=== PATIENT | male | born 1975 | race Caucasian/White ===

== ENCOUNTER 2019-08-21 12:28 | Emergency (ER) | payer BC ==
[~2019-08-21] VITALS: Ht 177.8 cm; Wt 80.3 kg
[~2019-08-21 12:28] MED LIST: AMBIEN CR12.5 MG PO; AMLODIPINE BESY10 MG PO; AMLODIPINE-BEN1 EAC3 PO; BENTYL10 MG PO; HYDROCHLOROTHIA25 MG PO; SUBOXONE 2 MG-1 EACH PO; TIZANIDINE
--- OUTSIDE RECORDS SUMMARY | 2019-08-21 12:32 | XMS REPORT ---
Author Author [facility] Address Unknown Phone Unavailable Care Team Providers Care Loss Prevention Consultant Name Role Phone BONNY BYRNE Unavailable Unavailable JAMIE BYRNE Unavailable Unavailable Problems This patient has no known problems. Allergies, Adverse Reactions, Alerts This patient has no known allergies or adverse reactions. Medications This patient has no known medications. Results Test Description Test Time Test Comments Text Results Atomic Results Result Comments MRI SACRUM WO [place] [address] Patient Name: FRANC DE LA CRUZ MR #: [id number] : 1975 Age/Sex: 42/M Req #: [id number] [facility] Physician: BONNY BYRNE MD Ordered by: JAMIE BYRNE MD Report #: [id number] Location: [facility] Room/Bed: [place] [address] Procedure: [id number] MRI/MRI SACRUM WO Exam Date: Exam Time: REPORT STATUS: Signed History: Severe low back pain and left lower extremity pain for 3 days. Comparison studies:MRI lumbar spine done earlier the same day. Technique: Coronal T1, PD, sagittal T2, axial T1 and PD without intravenous contrast. Findings: Sacrum: Nonspecific heterogeneous bone marrow signal. Schmorl's node along the superior endplate of S1. No acute fracture, mass or infectious process. Soft tissues: No abnormality Findings in the visualized lower lumbar spine is better detailed in dedicated MRI of the lumbar spine done the same day. IMPRESSION: No acute abnormality Signed by: Dr. Meghan Dee M.D. on 09/19/2017 2:27 AM Dictated By: MEGHAN DEE MD 6 Transcribed By: RAFA on 09/19/17226 COPY TO: JAMIE BYRNE MD MRI SPINE LUMBAR WO [place] [address] Patient Name: FRNAC DE LA CRUZ MR #: [id number] : 1975 Age/Sex: 42/M Req #: [id number] Adm Physician: BONNY BYRNE MD Ordered by: JAMIE BYRNE MD Report #: [id number] Location: [facility] Room/Bed: [place] [address] Procedure: [id number] MRI/MRI SPINE LUMBAR WO Exam Date: Exam Time: REPORT STATUS: Signed History: Severe low back pain and left lower extremity pain for 3 days. Comparison studies: None Technique: Sagittal,coronal and axial T2 , sagittal T1 and IR, axial PD. Intravenous contrast: None Findings: Number of lumbar vertebral bodies: 5. Alignment: Straightening of normal lumbar lordosis may be positional or due to muscle spasm No scoliosis. Soft tissues: No T2 hyperintense inflammatory changes. Paraspinal muscles: No signal abnormalities. Well-preserved. No atrophic changes Lower thoracic cord: Normal in signal and morphology. The tip of the conus is at L1 . Cauda equina: No masses. No arachnoiditis. Vertebrae: Schmorl's node with surrounding endplate edema along the inferior endplate of L4 (image 12, series 5). 3 x 4 mm T1 and T2 hyperintense, STIR hyperintense lesion along the superior endplate of L4 possibly represents a lipid rich hemangioma. Degenerative endplate changes and chronic Schmorl's node along the superior endplate of S1. No compression fractures, infection or neoplasm. Degenerative changes: L1-L2: No abnormalities L2- L3: No abnormalities L3-L4: No abnormalities L4-L5: Mild degenerative disc disease with decreased T2 signal. Disc bulge with superimposed 5 mm left foraminal disc protrusion results in mild left foraminal stenosis and 5 mm left subarticular disc extrusion with approxim ately 1.2 mm inferior migration with questionable contact of left L5 nerve root. Asymmetric effacement of the anterior thecal sac without canal stenosis. Right foramen is patent. L5-S1: Mild degenerative disc disease with decreased T2 signal. Asymmetric disc bulge to the left results in mild left foraminal stenosis. No canal stenosis. IMPRESSION: 1. Mild lumbar spondylosis at L4-L5 and L5-S1 without canal stenosis. 2. Mild left foraminal stenosis at L4-L5 and L5-S1. 3. Disc bulge with superimposed left subarticular disc extrusion with questionable contact of left L5 nerve root at L4-L5. 4. Schmorl's node with degenerative endplate edema at L4 and S1 as detailed above. 5. Loss of normal lumbar lordosis may be positional or due to muscle spasm. Signed by: Dr. Meghan Dee M.D. on 09/19/2017 2:20 AM Dictated By: MEGHAN DEE MD 9 Transcribed By: RAFA on 09/19/17219 COPY TO: JAMIE BYRNE MD CT ABDOMEN/PELVIS [place] [address] Patient Name: FRANC DE LA CRUZ MR #: [id number] : 1975 Age/Sex: 42/M Req #: [id number] Adm Physician: Ordered by: PHIL AVILA MD Report #: [id number] Location: Room/Bed: Procedure: [id number] CT/CT ABDOMEN/PELVIS WO Exam Date: 09/18/17 Exam Time: 1412 REPORT STATUS: Signed EXAM: CT Abdomen and Pelvis WITH contrast INDICATION: Lower abdominal pain, flank pain, dysuria COMPARISON: 08/04/2017 TECHNIQUE: Abdomen and pelvis were scanned utilizing a multidetector helical scanner from the lung base to the pubic symphysis after administration of IV contrast. Coronal and sagittal reformations were obtained. Routine protocol is performed. IV CONTRAST: None. ORAL CONTRAST: Water RADIATION DOSE: Total DLP: 300.08 mGy*cm Estimated effective dose: (DLP x 0.015 x size factor) mSv COMPLICATIONS: None FINDINGS: LINES and TUBES: None. LOWER THORAX: Calcified granuloma in the right lung lower lobe HEPATOBILIARY: No focal hepatic lesions. No biliary ductal dilation. GALLBLADDER: Absent SPLEEN: No splenomegaly. PANCREAS: No focal masses or ductal dilatation. ADRENALS: No adrenal nodules KIDNEYS/URETERS: No hydronephrosis. No cystic or solid mass lesions. No stones. GI TRACT: No abnormal distention, wall thickening, or evidence of bowel obstruction. The appendix is not visualized, but there is no suspicious inflammation in the right lower quadrant. PELVIC ORGANS/BLADDER: Unremarkable. LYMPH NODES: Nonspecific mesenteric calcifications in the right lower quadrant (series 3, image 123) may represent calcified lymph nodes. VESSELS: Unremarkable. PERITONEUM / RETROPERITONEUM: No free air or fluid. BONES: Unremarkable. SOFT TISSUES: Unremarkable. IMPRESSION: No specific findings to explain the patient's symptoms. No renal or ureteral stones. Jennifer Hightower MD Signed by: Dr. Jennifer Hightower M.D. on 09/18/2017 3:24 PM Dictated By: JENNIFER HIGHTOWER MD 1524 Transcribed By: RAFA on 09/18/17 1524 COPY TO: PHIL AVILA MD CT ABDOMEN[facility] [place] [address] Patient Name: FRANC DE LA CRUZ MR #: [id number] : 1975 Age/Sex: 42/M Req #: [id number] Adm Physician: Ordered by: JAMIE BYRNE MD Report #: [id number] Location: CT Room/Bed: Procedure: [id number] CT/CT ABDOMEN/PELVIS W Exam Date: Exam Time: REPORT STATUS: Signed PROCEDURE: CT ABDOMEN AND PELVIS WITH CONTRAST TECHNIQUE: The abdomen and pelvis were scanned utilizing a multidetector helical scanner from the diaphragm to the lesser trochanter after the IV administration of 100 cc of Isovue 370 and the oral administration of water. Coronal and sagittal multiplanar reformations were obtained. Total DLP: 269 mGy-cm COMPARISON: CT pelvis 10/07/2010. INDICATIONS: LOWER ABDOMINAL PAIN FINDINGS: LOWER THORAX: Stable 2.6 mm nodule in the right middle lobe (series 2 image 3). Stable since 2009. HEPATOBILIARY: No focal hepatic lesions. No biliary ductal dilatation. Cholecystectomy clips. SPLEEN: No splenomegaly. PANCREAS: No focal masses or ductal dilatation. ADRENALS: No adrenal nodules. KIDNEYS/URETERS: No hydronephrosis, stones, or solid mass lesions. PELVIC ORGANS/BLADDER: Unremarkable. PERITONEUM / RETROPERITONEUM: No free air or fluid. LYMPH NODES: No lymphadenopathy. Stable 2 coarse dystrophic calcifications in the mesentery adjacent to the sigmoid colon, likely from previous surgery. (Series 2 image 65) VESSELS: Unremarkable. GI TRACT: No distention or wall thickening. Stable suture material at the cecum. BONES AND SOFT TISSUES: Unremarkable. IMPRESSION: No acute abnormalities in the abdomen or pelvis. Dictated by: Alonzo Benton M.D. on 08/04/2017 at 17:07 Electronically approved by: Alonzo Benton M.D. on 08/04/2017 at 17:07 Dictated By: ALONZO BENTON MD 06 Transcribed By: JOHNNY on 08/04/171706 COPY TO: JAMIE BYRNE MD
--- OUTSIDE RECORDS SUMMARY | 2019-08-21 12:32 | XMS REPORT | Clinical Summary ---
Author Author [facility] Organization [facility] Address Unknown Phone Unavailable Care Team Providers Care Roof Truss Builder Name Role Phone Skyler Bain MD PCP Allergies Comments Active Allergy Reactions Severity Noted Date Morphine Hives 11/14/2017 Medications End Date Status Medication Sig Dispensed Refills Start Date Active amlodipine-benazepril TK ONE C PO 5 (LOTREL) 10-40 mg per QD 7 capsule Active dicyclomine (BENTYL) 20 TK 1 T PO QID 3 mg tablet 7 Active LINZESS 145 mcg capsule TK ONE C PO 3 QAM AC 7 Active tiZANidine (ZANAFLEX) 4 0 MG tablet 7 Active topiramate (TOPAMAX) 100 2 MG tablet 7 Active zolpidem CR (AMBIEN CR) TK 1 T PO 2 12.5 MG CR tablet QHS PRN 7 Active acetaminophen-codeine TAKE 1 TABLET 0 (TYLENOL WITH CODEINE #4) BY MOUTH 8 300-60 mg per tablet EVERY 24 HOURS NEEDED Active BELBUCA [address] FILM 0 BETWEEN THE 8 CHEEK GUM ALLOW TO DISSOLVE EVERY 12 HOURS Active SUMAtriptan (IMITREX) 50 1 MG tablet 8 Active Problems Problem Noted Date Failed back syndrome, lumbosacral 11/15/2017 Overview: Pain management : Initial Consultation Report Patient Identification Sj Hernandez is a 42 y.o. male. Admit Date: 11/15/2017 Attending Provider: Neha Person MD Consult requested by: Neha Person MD Date of Consultation:11/15/2017 Reason for Consultation: Evaluation for rehabilitation needs History of present illness: Sj Hernandez is a 42 y.o. male Past Medical History: Past Medical History: Diagnosis Date Hyperlipidemia Hypertension Past Surgical History: Past Surgical History: Procedure Laterality Date APPENDECTOMY BACK SURGERY x 4 CHOLECYSTECTOMY EXPLORATION, ABDOMEN, LAPAROSCOPIC KNEE ARTHROSCOPY SHOULDER ARTHROSCOPY Current Medications: Current Facility-Administered Medications: bupivacaine (MARCAINE) 0.25 % (2.5 mg/mL) injection, , , PRN, Neha Person MD, 10 mL at 11/15/17 1421 fentaNYL (SUBLIMAZE) injection 25 mcg, 25 mcg, intravenous, Q5 Min PRN, Angelica Allen MD hydromorPHONE (DILAUDID) injection 0.5 mg, 0.5 mg, intravenous, Q5 Min PRN, Angelica Allen MD iohexol (OMNIPAQUE) 240 mg iodine/mL injection, , , PRN, Neha Person MD, 6 mL at 11/15/17 1421 lactated ringer's infusion, 30 mL/hr, intravenous, Continuous, Angelica Allen MD levofloxacin (LEVAQUIN) 500 mg/100 mL IVPB 500 mg, 500 mg, intravenous, Once, Neha Person MD lidocaine (XYLOCAINE) 20 mg/mL (2 %) injection, , , PRN, Neha Person MD, 20 mL at 11/15/17 1421 naloxone (NARCAN) 0.4 mg/mL injection 0.1 mg, 0.1 mg, intravenous, Q1 Min PRN, Angelica Allen MD ondansetron ODT (ZOFRAN-ODT) disintegrating tablet 4 mg, 4 mg, oral, Once PRN OR ondansetron (ZOFRAN) injection 4 mg, 4 mg, intravenous, Once PRN, Angelica Allen MD promethazine (PHENERGAN) 6.25 mg in sodium chloride 0.9 % 10 mL injection, 6.25 mg, intravenous, Q6H PRN OR promethazine (PHENERGAN) tablet 12.5 mg, 12.5 mg, oral, Q6H PRN, Angelica Allen MD sodium chloride 0.9 % infusion, 50 mL/hr, intravenous, Continuous, Neha Person MD, Last Rate: 50 mL/hr at 11/15/17 1331, 50 mL/hr at 11/15/17 1331 sodium chloride 0.9 % infusion, , , Continuous PRN, Neha Person MD, 5 mL at 11/15/17 1422 triamcinolone acetonide (KENALOG-40) injection, , , PRN, Neha Person MD, 120 mg at 11/15/17 1421 Facility-Administered Medications Ordered in Other Encounters: fentaNYL (SUBLIMAZE) injection, , , PRN, Angelica Allen MD, 50 mcg at 11/15/17 1402 levofloxacin (LEVAQUIN) 500 mg/100 mL IVPB, , , PRN, Angelica Allen MD, 500 mg at 11/15/17 1405 lidocaine (PF) (XYLOCAINE) 20 mg/mL (2 %) injection, , , PRN, Angelica Allen MD, 40 mg at 11/15/17 1356 MIDAZolam (VERSED) injection, , , PRN, Angelica Allen MD, 2 mg at 11/15/17 1358 propofol (DIPRIVAN) 10 mg/mL injection, , , PRN, Angelica Allen MD, 50 mg at 11/15/17 1417: Allergies: Allergies Allergen Reactions Morphine Hives : Social History: reports that he has never smoked. His smokeless tobacco use includes Snuff. He reports that he drinks alcohol. He reports that he does not use illicit drugs.: Family History: noncontributory Family History Problem Relation Age of Onset Cancer Mother Previous Level of Function: Current functional Status: Review of Systems: Constitutional: + fatigue Head: No headaches Eyes: No vision change CV: No chest pain Resp: No shortness of breath GI: No nausea/vomiting : No voiding difficulty MSK: No joint pain Neuro: No numbness or focal weakness Skin: No new lesions Heme: No easy bruising All / Imm: No new rashes or reactions Psych: Mood ok Physical Examination: Vital Signs: BP 116/71 | Pulse 72 | Temp 97.3 F (Temporal) | Resp 18 | Ht 5' 11" | Wt 78.4 kg (172 lb 14.4 oz) | SpO2 98% | BMI 24.11 kg/m2 General: no apparant distress. Eyes: no scleral icterus CV: +S1/S2 Pulm: cta Abd: S/NT/ND Ext: no LE edema Psych: mood & affect congruent MSK: functional ROM Neurological: Mental Status: A&O Speech: speech is fluent, follows commands Motor: Sensory: intact to light touch LE Reflexes: no ankle clonus Tone: normal Labs: Reviewed. This component does not exist; LABGLOM, GLUCOSE Imaging: No results found. Impression: Sj Hernandez is a 42 y.o. year old male with gait difficulty, debility, and There is no problem list on file for this patient. Plan: Rehab: Continue current pain medication with Physical Therapy with focus on pain control with gait/balance/transfer training and strengthening LE. Consult OT for ADLs training. Medical: Social: Dispo: Thank you Neha Person MD for allowing us to participate in the care of this patient. Neha Person MD Back pain at L4-L5 level 11/15/2017 Family History Medical History Relation Name Comments Cancer Mother Relation Name Status Comments Mother Social History Date Tobacco Use Types Packs/Day Years Used Never Smoker Smokeless Tobacco: Snuff Current User Drinks/Week oz/Week Comments Alcohol Use seldom Yes Sex Assigned at Date Recorded Not on file Industry Job Start Date Occupation Not on file Not on file Not on file Travel End Travel History Travel Start No recent travel history available. 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
[2019-08-21] MEDS: ONDANSETRON HCL INJ 2MG/ML 2ML 2 MG/ML VIAL IV STA (13:29)
[2019-08-21] MEDS ORDERED: ONDANSETRON HCL INJ 2MG/ML 2ML 2 MG/ML VIAL ONE (13:32)
[2019-08-21 13:45] LABS: BASOPHILS % 0.5 % (0.0-1.0); EOSINOPHILS # (AUTO) 0.1 (0.0-0.4); EOSINOPHILS % 1.4 % (0.0-6.0); HEMATOCRIT 44.8 % (38.2-49.6); HEMOGLOBIN 14.8 g/dL (14.0-18.0); MEAN CORPUSCULAR HEMOGLOBIN 28.4 pg (28-32); MEAN CORPUSCULAR VOLUME 85.8 fL (81-99); MONOCYTES # (AUTO) 0.5 (0.2-0.8); MONOCYTES % 8.2 % (4.4-11.3); NEUTROPHILS # (AUTO) 3.9 (2.1-6.9); NEUTROPHILS % 58.6 % (38.7-80.0); PLATELET COUNT 274 x10e3/uL (140-360); RED BLOOD COUNT 5.22 x10e6/uL (4.3-5.7); RED CELL DISTRIBUTION WIDTH 12.7 % (11.7-14.4)
[2019-08-21 14:06] LABS: ALANINE AMINOTRANSFERASE 35 IU/L (0-55); ALBUMIN 4.9 g/dL (3.5-5.0); ALBUMIN/GLOBULIN RATIO 1.4 (0.8-2.0); ALKALINE PHOSPHATASE 120 IU/L (40-150); ANION GAP 14.1 mmol/L (8-16); BLOOD UREA NITROGEN 17 mg/dL (7-26); BUN/CREATININE RATIO 14 (6-25); CALCIUM 10.1 mg/dL (8.4-10.2); CARBON DIOXIDE 27 mmol/L (22-29); CHLORIDE 100 mmol/L (98-107); CREATININE, SERUM 1.19 mg/dL (0.72-1.25); EST GLOMERULAR FILTRATION RATE > 60 ML/MIN (60-); GLUCOSE 93 mg/dL (74-118); POTASSIUM 4.1 mmol/L (3.5-5.1); SODIUM 137 mmol/L (136-145)
[2019-08-21 14:09] LABS: AMYLASE 46 U/L (25-125); LIPASE 11 U/L (8-78)
[2019-08-21] MEDS ORDERED: SODIUM CHLORIDE 0.9% 50ML 50 ML ONE (14:29)
[2019-08-21] MEDS ORDERED: IOPAMIDOL 370 MG/ML 200 ML INFUS..BTL INJ ONE (14:29)
[2019-08-21] MEDS ORDERED: MORPHINE SULFATE INJ 4 MG/ML INJ 1ML IV NR (14:30)
[2019-08-21 14:31] LABS: BILIRUBIN,URINE NEGATIVE (NEGATIVE); CLARITY,URINE SL CLOUDY (CLEAR); COLOR,URINE YELLOW (YELLOW); KETONES,URINE NEGATIVE (NEGATIVE); LEUKOCYTE ESTERASE ,URINE NEGATIVE (NEGATIVE); NITRITE,URINE NEGATIVE (NEGATIVE); PROTEIN,URINE DIPSTICK NEGATIVE (NEGATIVE); URINE UROBILINOGEN 1 mg/dL (0.2 - 1)
[2019-08-21 14:50] LABS: BACTERIA,URINE FEW /HPF; MUCUS,URINE MODERATE (RARE)
--- NOTE | 2019-08-21 15:20 | Diagnostic Imaging Report ---
EXAM: CT Abdomen and Pelvis WITH intravenous contrast INDICATION: Right lower quadrant abdominal pain, nausea, vomiting COMPARISON: Report of CT abdomen and pelvis of 09/18/2017 (images not available for comparison). TECHNIQUE: Abdomen and pelvis were scanned utilizing a multidetector helical scanner from the lung base to the pubic symphysis after administration of IV contrast. Coronal and sagittal reformations were obtained. Routine protocol was performed. Scan was performed during portal venous phase. IV CONTRAST: 100mL of Isovue 370 ORAL CONTRAST: Water RADIATION DOSE: Total DLP: 279.0 mGy*cm Dose modulation, iterative reconstruction, and/or weight based adjustment of the mA/kV was utilized to reduce the radiation dose to as low as reasonably achievable. FINDINGS: LOWER THORAX: Normal. HEPATOBILIARY: Diffuse hepatic steatosis. No focal liver lesions. No biliary ductal dilation. Status post cholecystectomy. SPLEEN: No splenomegaly. PANCREAS: No focal masses or ductal dilatation. ADRENALS: No adrenal nodules. KIDNEYS/URETERS: No hydronephrosis, stones, or solid mass lesions. PELVIC ORGANS/BLADDER: Unremarkable. PERITONEUM / RETROPERITONEUM: No free air or fluid. LYMPH NODES: No lymphadenopathy. VESSELS: Unremarkable. GI TRACT: No distention or wall thickening. No bowel obstruction. Reported history of appendectomy. BONES AND SOFT TISSUES: No acute osseous injury. No suspicious lytic or blastic lesions. IMPRESSION: No acute findings in the abdomen or pelvis. Diffuse hepatic steatosis. Signed by: Alesha Prater MD on 08/21/2019 3:17 PM
[2019-08-21] MEDS ORDERED: SODIUM CHLORIDE 0.9% 1000ML 1,000 ML ONE (15:25)
[2019-08-21] MEDS: HYDROMORPHONE 1MG/1ML INJ IV NR (15:27)
[2019-08-21] MEDS: SODIUM CHLORIDE 0.9% 1000ML 1,000 ML IV ONE (15:27)
[2019-08-21] MEDS: PROMETHAZINE 12.5MG/ NACL 0.9% 12.5 MG/50 ML BAG IV ONE (15:39)
== END 2019-08-21 16:33 | disposition home or self-care (01) ==
LOC: ER 12:28
DX: R11.2 Nausea with vomiting, unspecified (principal); R10.31 Right lower quadrant pain; I10 Essential (primary) hypertension; Z88.6 Allergy status to analgesic agent; Z88.5 Allergy status to narcotic agent
CPT/HCPCS: 36415; 74177; 80053; 81001; 82150; 83690; 85025; 99284; J1170; J2405; J2550; J7030; Q9967

== ENCOUNTER → 2019-08-23 | Day surgery (SDC) | payer BC ==
[~2019-08-23] MED LIST changes: +ACETAMINOPHEN 325 MG/10 ML UDC ONE; +FENTANYL CITRATE/PF 100MCG/2 ML INJ ONE; +HYDRALAZINE HCL 20 MG/ML VIAL ONE; +HYOSCYAMINE 0.125 MG TAB ONE; +MIDAZOLAM HCL 5 MG/ML VIAL ONE; +PROPOFOL IV EMULSION 10 MG/ML 20 ML VIAL ONE
--- OUTSIDE RECORDS SUMMARY | 2019-08-23 12:58 | XMS REPORT | Clinical Summary ---
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
[2019-08-23 17:20] VITALS: BP 132/84
[2019-08-23 17:59] LABS: WBC,FECAL (FECAL LACTOFERRIN) NEGATIVE (NEGATIVE)
[2019-08-24 11:41] LABS: C DIFFICILE TOXIN A&B AMP PROB NEGATIVE (NEGATIVE)
== END | disposition home or self-care (01) ==
LOC: OR 12:53
PROVIDERS: ATTEND Internal Medicine Gastroenterology
DX: K22.2 Esophageal obstruction (principal); K29.50 Unspecified chronic gastritis without bleeding; K51.50 Left sided colitis without complications; K21.0 Gastro-esophageal reflux disease with esophagitis; K44.9 Diaphragmatic hernia without obstruction or gangrene; K59.00 Constipation, unspecified; K62.89 Other specified diseases of anus and rectum; K64.8 Other hemorrhoids; I10 Essential (primary) hypertension; R20.0 Anesthesia of skin; N20.0 Calculus of kidney; Z88.6 Allergy status to analgesic agent; Z88.8 Allergy status to other drugs, medicaments and biological substances; Z01.810 Encounter for preprocedural cardiovascular examination; Z80.0 Family history of malignant neoplasm of digestive organs
CPT/HCPCS: 36415; 43239; 43450; 45380; 83630; 83993; 85651; 86140; 86256; 86671; 87045; 87177; 87328; 87493; 93005; J0360; J2250; J2704; J3010; 45378

== ENCOUNTER → 2021-09-11 | Day surgery (SDC) | payer BC ==
[~2021-09-11] MED LIST changes: -ACETAMINOPHEN 325 MG/10 ML UDC ONE; +GLUCAGON FOR INJ 1 MG VIAL ONE; -HYDRALAZINE HCL 20 MG/ML VIAL ONE; -HYOSCYAMINE 0.125 MG TAB ONE; +HYOSCYAMINE SULFATE 0.5 MG/ML INJ ONE; +LIDOCAINE HCL 2% LOCAL INJ 5 ML SDV VIAL INJ ONE; +MIDAZOLAM HCL 2 MG/2 ML VIAL ONE; -MIDAZOLAM HCL 5 MG/ML VIAL ONE
[2021-09-11 15:35] LABS: WBC,FECAL (FECAL LACTOFERRIN) NEGATIVE (NEGATIVE)
[2021-09-11 16:00] VITALS: BP 120/80
[2021-09-12 14:20] LABS: C DIFFICILE TOXIN A&B AMP PROB NEGATIVE (NEGATIVE)
[2021-09-16 05:11] LABS: ENDOMYSIAL ANTIBODIES, IGA Negative (Negative)
== END | disposition home or self-care (01) ==
LOC: OR 12:44
PROVIDERS: ATTEND Internal Medicine Gastroenterology
DX: K22.2 Esophageal obstruction (principal); Z86.010 Personal history of colon polyps; K29.70 Gastritis, unspecified, without bleeding; K20.90 Esophagitis, unspecified without bleeding; K21.9 Gastro-esophageal reflux disease without esophagitis; K52.9 Noninfective gastroenteritis and colitis, unspecified; K62.89 Other specified diseases of anus and rectum; K59.09 Other constipation; K64.8 Other hemorrhoids; M54.9 Dorsalgia, unspecified; I10 Essential (primary) hypertension; Z88.6 Allergy status to analgesic agent; Z88.8 Allergy status to other drugs, medicaments and biological substances; Z01.810 Encounter for preprocedural cardiovascular examination; Z01.812 Encounter for preprocedural laboratory examination; Z20.822 Contact with and (suspected) exposure to COVID-19; Z86.16 Personal history of COVID-19; Z87.442 Personal history of urinary calculi; Z80.0 Family history of malignant neoplasm of digestive organs
CPT/HCPCS: 43239; 43450; 45380; 82784; 83516; 83630; 83993; 86256; 87045; 87177; 87328; 87493; 93005; C9113; J1610; J1980; J2001; J2250; J2704; J3010; U0002; 45378

== ENCOUNTER → 2022-09-15 | Day surgery (SDC) | payer BC ==
[~2022-09-15] MED LIST changes: +BUSPAR PO; +CRESTOR10 MG PO; -GLUCAGON FOR INJ 1 MG VIAL ONE; -HYOSCYAMINE SULFATE 0.5 MG/ML INJ ONE; +KETAMINE HCL INJ 50 MG/ML 10 ML VIAL ONE; +LEXAPRO20 MG PO; -LIDOCAINE HCL 2% LOCAL INJ 5 ML SDV VIAL INJ ONE
[2022-09-15 11:00] VITALS: BP 98/56
[2022-09-18 16:10] LABS: ENDOMYSIAL ANTIBODIES, IGA Negative (Negative)
== END | disposition home or self-care (01) ==
LOC: ENDO 08:36
PROVIDERS: ATTEND Internal Medicine Gastroenterology
DX: K21.00 Gastro-esophageal reflux disease with esophagitis, without bleeding (principal); K29.50 Unspecified chronic gastritis without bleeding; K59.03 Drug induced constipation; Z71.3 Dietary counseling and surveillance; I10 Essential (primary) hypertension; E78.00 Pure hypercholesterolemia, unspecified; G43.909 Migraine, unspecified, not intractable, without status migrainosus; F32.A Depression, unspecified; F41.9 Anxiety disorder, unspecified; Z88.6 Allergy status to analgesic agent; Z88.8 Allergy status to other drugs, medicaments and biological substances; Z01.810 Encounter for preprocedural cardiovascular examination; Z79.899 Other long term (current) drug therapy; Z98.1 Arthrodesis status; Z86.16 Personal history of COVID-19; Z80.0 Family history of malignant neoplasm of digestive organs
CPT/HCPCS: 43239; 43450; 82784; 83516; 86256; 93005; C9113; J2250; J2704; J3010